=== PATIENT | male | born 1985 | race Two or more races ===

== ENCOUNTER → 2020-02-03 | Emergency (ER) | payer SELFPAY ==
[~2020-02-03] VITALS: Ht 180.3 cm; Wt 68.0 kg
[~2020-02-03] MED LIST: SODIUM CHLORIDE 0.9% 3,000 ML IV ONE
[2020-02-03 22:32] VITALS: BP 135/78
[2020-02-03 23:39] LABS: Basophils # (auto) 0 10 ^3/uL (0-0.2); Basophils % (auto) 0.3 % (0.0-2.0); Eosinophils # (auto) 0 10 ^3/uL (0-0.8); Eosinophils % (auto) 0.5 % (0.0-7.0); Hematocrit 39.3 % (41.0-53.0); Hemoglobin 13.3 g/dL (13.5-17.5); Lymphocytes % (auto) 20.4 % (10.0-50.0); Mean Corpuscular Hemoglobin 31.2 pg (28.0-32.0); Mean Corpuscular Volume 91.9 fL (80.0-100.0); Monocytes % (auto) 10.8 % (0.0-12.0); Neutrophils # (auto) 6.6 10 ^3/uL (1.6-8.6); Nucleated Red Blood Cells % 0.1 %; Platelet Count (auto) 307 10^3/uL (140-450); Red Blood Cells 4.28 10^6/uL (4.5-5.90); Red Cell Distribution Width 13.6 % (11.8-14.3); White Blood Cell 9.7 10^3/uL (4.4-10.8)
[2020-02-03 23:58] LABS: Albumin 3.7 g/dL (3.4-5.0); Calcium 8.9 mg/dL (8.5-10.1); Potassium 3.1 mmol/L (3.5-5.1)
[2020-02-04 00:01] LABS: BUN/Creatinine Ratio 7.1; Bilirubin, Total 0.2 mg/dL (0.2-1.0); Total Protein 7.2 g/dL (6.4-8.2)
== END | disposition home or self-care (01) ==
LOC: EDUNIT# 21:46 → ER 21:56 → EDBD 21:56
DX: F10.920 Alcohol use, unspecified with intoxication, uncomplicated (principal); F19.10 Other psychoactive substance abuse, uncomplicated
CPT/HCPCS: 36415; 80053; 80320; 85025; 93005; 99284; J7030

== ENCOUNTER 2022-04-04 00:08 | Emergency (ER) | payer MEDICAID, OTHER ==
[~2022-04-04] VITALS: Ht 175.3 cm; Wt 80.0 kg
[2022-04-04 00:25] VITALS: BP 143/91
== END 2022-04-04 04:32 | disposition home or self-care (01) ==
LOC: EDBD 00:08 → ER 00:08
DX: F15.10 Other stimulant abuse, uncomplicated (principal)